=== PATIENT | male | born 1990 | race Caucasian/White ===

== ENCOUNTER 2024-10-10 21:06 | Emergency (ER) | payer MEDICAID ==
[~2024-10-10] VITALS: Ht 190.5 cm; Wt 93.2 kg
[2024-10-10 21:10] VITALS: BP 130/80; PULSE 100; RESP 16; TEMP 98; O2SAT 99
[2024-10-10] MEDS ORDERED: FLO0.4C PO (21:33)
[2024-10-10] MEDS: LidoCAINE 2% Topical Jelly 11mL syringe (UROJET) TOP ONE (21:36)
[2024-10-10] MEDS: tamsulosin 0.4mg capsule PO ONE (21:58)
== END 2024-10-10 22:18 | disposition home or self-care (01) ==
LOC: ER 21:07
DX: R33.9 Retention of urine, unspecified (principal)
CPT/HCPCS: 51702; 99284; A4314; A5200; C1758